=== PATIENT | female | born 1950 | race Caucasian/White ===

== ENCOUNTER 2017-12-20 11:18 | Outpatient (CLI) | payer MEDICARE | END 2017-12-20 11:19 | disposition home or self-care (01) | LOC: BICULT 11:18 | PROVIDERS: ATTEND Internal Medicine | DX: Z12.31 Encounter for screening mammogram for malignant neoplasm of breast (principal); Z78.0 Asymptomatic menopausal state; N83.201 Unspecified ovarian cyst, right side; N83.202 Unspecified ovarian cyst, left side | CPT/HCPCS: 76856; 77063; 77067 ==

== ENCOUNTER 2018-06-10 09:53 | Emergency (ER) | payer MEDICARE ==
--- NOTE | 2018-06-10 11:27 | ULT ---
RIGHT LOWER EXTREMITY VENOUS DOPPLER WITH SPECTRAL ANALYSIS AND COLOR FLOW EVALUATION: DATE: 06/10/18. HISTORY: Right lower extremity pain primarily when walking. FINDINGS: Nichols scale, color flow, Doppler evaluation, and spectral analysis of the right lower extremity venous structures is performed with 2D imaging. The right lower extremity common femoral, superficial femo ral, popliteal, posterior tibial, most proximal greater saphenous, and profunda femoral veins are teddy ged. There is normal lumen compressibility, flow, and augmentation visualized deep venous structures right lower extremity. IMPRESSION: No evidence of a deep vein thrombosis involving the visualized deep venous structures right lower ext remity. POS: [facility]
== END 2018-06-10 11:38 | disposition home or self-care (01) ==
LOC: ERS 09:53
DX: M79.661 Pain in right lower leg (principal)

== ENCOUNTER 2018-06-11 13:43 | Emergency (ER) | payer MEDICARE | END 2018-06-11 17:17 | disposition home or self-care (01) | LOC: ERS 13:43 | DX: R53.1 Weakness (principal); E03.9 Hypothyroidism, unspecified; I10 Essential (primary) hypertension; Z79.899 Other long term (current) drug therapy | CPT/HCPCS: 99284 ==

== ENCOUNTER 2018-12-26 09:42 | Outpatient (CLI) | payer MEDICARE | END 2018-12-26 09:43 | disposition home or self-care (01) | LOC: BICMAMMO 09:42 | PROVIDERS: ATTEND Internal Medicine | DX: Z12.31 Encounter for screening mammogram for malignant neoplasm of breast (principal); R92.1 Mammographic calcification found on diagnostic imaging of breast; Z80.3 Family history of malignant neoplasm of breast | CPT/HCPCS: 77063; 77067 ==

== ENCOUNTER 2019-12-29 07:56 | Outpatient (CLI) | payer MEDICARE, OTHER ==
--- NOTE | 2020-01-01 13:27 | MMO ---
Bilateral MAMMO Bilat Screen [id number]. CLINICAL HISTORY: Patient is 69 years old and is seen for screening. The patient has the following family history of breast cancer: paternal grandmother, malignant (generic). The patient has no personal history of cancer. VIEWS: The views performed were: bilateral craniocaudal with tomosynthesis and bilateral mediolateral oblique with tomosynthesis. FILMS COMPARED: The present examination has been compared to prior imaging studies performed at [facility] on 12/14/2015, 12/15/2016, 12/20/2017 and 12/26/2018. This study has been interpreted with the assistance of computer-aided detection. MAMMOGRAM FINDINGS: The breasts are heterogeneously dense, which could obscure a lesion on mammography. Finding 1: There are stable benign appearing calcifications seen in both breasts. Finding 2: There is a stable global asymmetry seen in the right breast. There are no suspicious masses, suspicious calcifications, or new areas of architectural distortion. IMPRESSION: THERE IS NO MAMMOGRAPHIC EVIDENCE OF MALIGNANCY. A ROUTINE FOLLOW-UP MAMMOGRAM IN 1 YEAR IS RECOMMENDED. THE RESULTS OF THIS EXAM WERE SENT TO THE PATIENT. ACR BI-RADS Category 2 - Benign finding MAMMOGRAPHY NOTE: 1. A negative mammogram report should not delay a biopsy if a dominant of clinically suspicious mass is present. 2. Approximately 10% to 15% of breast cancers are not detected by mammography. 3. Adenosis and dense breasts may obscure an underlying neoplasm. Reported by: SIERRA ZARATE MD Electonically Signed: [id number]
== END 2019-12-29 07:57 | disposition home or self-care (01) ==
LOC: BICMAMMO 07:56
PROVIDERS: ATTEND Internal Medicine
DX: Z12.31 Encounter for screening mammogram for malignant neoplasm of breast (principal); Z80.3 Family history of malignant neoplasm of breast
CPT/HCPCS: 77063; 77067

== ENCOUNTER 2020-12-30 07:51 | Outpatient (CLI) | payer MEDICARE | END 2020-12-30 07:52 | disposition home or self-care (01) | LOC: BICMAMMO 07:51 | PROVIDERS: ATTEND Family Medicine | DX: Z12.31 Encounter for screening mammogram for malignant neoplasm of breast (principal); Z80.3 Family history of malignant neoplasm of breast | CPT/HCPCS: 77063; 77067 ==

== ENCOUNTER 2021-07-18 08:27 | Outpatient (CLI) | payer MEDICARE | END 2021-07-18 08:28 | disposition home or self-care (01) | LOC: BICMAMMO 08:27 | PROVIDERS: ATTEND Family Medicine | DX: R92.8 Other abnormal and inconclusive findings on diagnostic imaging of breast (principal) ==

== ENCOUNTER 2021-12-08 13:49 | Outpatient (CLI) | payer MEDICARE | END 2021-12-08 13:50 | disposition home or self-care (01) | LOC: BICMAMMO 13:49 | PROVIDERS: ATTEND Student in an Organized Health Care Education/Training Program | DX: N63.23 Unspecified lump in the left breast, lower outer quadrant (principal) | CPT/HCPCS: 76642; 77066; G0279 ==

== ENCOUNTER 2022-06-08 08:49 | Outpatient (CLI) | payer MEDICARE, OTHER | END 2022-06-08 08:50 | disposition home or self-care (01) | LOC: BICULT 08:49 | PROVIDERS: ATTEND Internal Medicine | DX: R92.8 Other abnormal and inconclusive findings on diagnostic imaging of breast (principal) ==